=== PATIENT | female | born 2000 | race Caucasian/White ===

== ENCOUNTER 2018-08-21 10:48 | Emergency (ER) | payer OTHER ==
[2018-08-21] MEDS ORDERED: Ibuprofen TAB* 600 MG PO ONE (11:05)
--- NOTE | 2018-08-21 11:07 | ED ---
Upper Extremity Pain - HPI Summary HPI Summary: The patient is a 17 y/o F presenting to [facility] with a chief complaint of sudden onset pain in the left thumb and sustaining injury s/p slamming the finger in a car door yesterday. The aching pain has since increased since yesterday, and is currently rated 7/10 in severity. There is also bruising and decreased ROM in the thumb as movement aggravates the pain. Hx of mental health. FHx of diabetes and mental health. Former smoker, occasional EtOH, marijuana use. - History of Current Complaint Chief Complaint: EDExtremityUpper Stated Complaint: POSS BROKEN LEFT THUMB PER PT Time Seen by Provider: 08/21/18 10:59 Hx Obtained From: Patient Mechanism Of Injury: Other - slammed in car door Onset/Duration: Started Hours Ago - yesterday, Still Present Timing: Lasting Hours Severity Initially: Mild Severity Currently: Moderate Pain Location: Finger - left thumb Character: Aching Aggravating Factor(s): Movement Alleviating Factor(s): Rest Associated Signs & Symptoms: Positive: Bruising, Other - decreased ROM in the left thumb - Allergies/Home Medications Allergies/Adverse Reactions: Allergies Allergy/AdvReac Type Severity Reaction Status Date / Time shellfish derived Allergy Nausea Verified 08/21/18 10:52 PMH/Surg Hx/FS Hx/Imm Hx Respiratory History: Denies: Hx Asthma Sensory History: Denies: Hx Deafness Opthamlomology History: Denies: Hx Legally Blind EENT History: Denies: Hx Deafness Psychiatric History: Reports: Other Psychiatric Issues/Disorders - unspecified - Surgical History Surgical History: None Surgery Procedure, Year, and Place: none Infectious Disease History: No Infectious Disease History: Denies: Traveled Outside the [place] in Last 30 Days - Family History Known Family History: Positive: Diabetes, Other - mental health Negative: Cardiac Disease, Hypertension - Social History Alcohol Use: Occasionally Hx Substance Use: Yes Substance Use Type: Reports: Marijuana Substance Use Comment - Amount & Last Used: vape Hx Tobacco Use: Yes Smoking Status (MU): Former Smoker Review of Systems Positive: Decreased ROM - of the left thumb, Other - pain in the left thumb Positive: Bruising - of the left thumb All Other Systems Reviewed And Are Negative: Yes Physical Exam - Summary Physical Exam Summary: VITAL SIGNS: Reviewed. GENERAL: Patient is a well-developed and nourished female who is lying comfortable in the stretcher. Patient is not in any acute respiratory distress. HEAD AND FACE: No signs of trauma. No ecchymosis, hematomas or skull depressions. No sinus tenderness. EYES: PERRLA, EOMI x 2, No injected conjunctiva, no nystagmus. EARS: Hearing grossly intact. Ear canals and tympanic membranes are within normal limits. MOUTH: Oropharynx within normal limits. NECK: Supple, trachea is midline, no adenopathy, no JVD, no carotid bruit, no c- spine tenderness, neck with full ROM. CHEST: Symmetric, no tenderness at palpation LUNGS: Clear to auscultation bilaterally. No wheezing or crackles. CVS: Regular rate and rhythm, S1 and S2 present, no murmurs or gallops appreciated. ABDOMEN: Soft, non-tender. No signs of distention. No rebound no guarding, and no masses palpated. Bowel sounds are normal. EXTREMITIES: Unable to assess capillary refill due to subungual hematoma of the left thumb, decreased ROM secondary to pain. FROM in all major joints, no edema , no cyanosis or clubbing. NEURO: Alert and oriented x 3. No acute neurological deficits. Speech is normal and follows commands. SKIN: Dry and warm. Subungual hematoma of the left thumb. Triage Information Reviewed: Yes Vital Signs On Initial Exam: Initial Vitals Temp Pulse Resp BP Pulse Ox 97.5 F 79 14 137/72 97 08/21/18 10:49 08/21/18 10:49 08/21/18 10:49 08/21/18 10:49 08/21/18 10:49 Vital Signs Reviewed: Yes Diagnostics - Vital Signs Vital Signs Temp Pulse Resp BP Pulse Ox 08/21/18 10:49 97.5 F 79 14 137/72 97 - Laboratory Lab Statement: Any lab studies that have been ordered have been reviewed, and results considered in the medical decision making process. - Radiology L Thumb XR Radiology Interpretation Completed By: Radiologist Summary of Radiographic Findings: No evidence for fracture. ED physician has reviewed this radiology report. Re-Evaluation - Re-Evaluation First Eval Re-Evaluation Time: 11:38 Comment: I discussed the XR results with the patient, and we spoke about discharge home with splint placement. Course/Dx - Course Assessment/Plan: The patient is a 17 y/o F presenting to [facility] with a chief complaint of sudden onset pain in the left thumb and sustaining injury s/p slamming the finger in a car door yesterday. The aching pain has since increased since yesterday, and is currently rated 7/10 in severity. There is also bruising and decreased ROM in the thumb as movement aggravates the pain. Hx of mental health. FHx of diabetes and mental health. Former smoker, occasional EtOH, marijuana use. There is a mild subungual hematoma; therefore it did not offer any drainage at this point. X-ray of the left thumb shows no fracture or dislocation. Therefore, the patient was discharged home with follow- up with PCP. I will place the patient in a finger splint just to protect her from pain. Patient is hemodynamically stable alert and oriented 3. - Diagnoses Provider Diagnoses: Thumb injury, Subungual hematoma Discharge - Sign-Out/Discharge Documenting (check all that apply): Patient Departure - Patient will be discharged home. Patient Received Moderate/Deep Sedation with Procedure: No - Discharge Plan Condition: Good Disposition: HOME Patient Education Materials: Subungual Hematoma (ED), Finger Sprain (ED) Referrals: [facility] [place] [facility] [place] [facility] [Outside] - 3 Days Additional Instructions: FOLLOW UP WITH YOUR PRIMARY CARE PROVIDER IN 2-3 DAYS. RETURN TO THE ED FOR ANY WORSENING OR NEW SYMPTOMS. - Billing Disposition and Condition Condition: GOOD Disposition: Home - Attestation Statements Document Initiated by Deniz: Yes Documenting Scribe: Eva Barajas Provider For Whom Deniz is Documenting (Include Credential): Dr. Roman Weiss MD Scribe Attestation: Eva Fall scribed for Dr. Roman Weiss MD on 08/21/18 at 1206. Scribe Documentation Reviewed: Yes Provider Attestation: The documentation as recorded by the Eva conner accurately reflects the service I personally performed and the decisions made by me, Dr. Roman Weiss MD Status of [place] Document: Viewed
[2018-08-21 12:04] VITALS: BP 136/73
== END 2018-08-21 11:59 | disposition home or self-care (01) ==
LOC: ED 10:48
DX: S60.012A Contusion of left thumb without damage to nail, initial encounter (principal); W23.0XXA Caught, crushed, jammed, or pinched between moving objects, initial encounter; Y92.810 Car as the place of occurrence of the external cause; Z91.013 Allergy to seafood; Z87.891 Personal history of nicotine dependence
CPT/HCPCS: 99282; A9270-GY

== ENCOUNTER 2018-08-22 14:09 | Emergency (ER) | payer OTHER ==
--- NOTE | 2018-08-22 14:39 | ED ---
Upper Extremity Pain - HPI Summary HPI Summary: Patient is a 17-year-old female who presents emergency department for reevaluation of injury to left thumb that occurred 2 days ago. Patient states she accidentally closed her left thumb in a car door 2 days ago. She was seen here yesterday and had an x-ray which was negative for fracture dislocation. Patient states she's been taking Tylenol and Motrin and is still having pain. Patient concerned because she feels her pain is increasing and is concerned blood needs to be drained from under her nail bed. Patient states she does not want to lose her nail. Patient was given a finger splint which she has not been wearing stating it is uncomfortable. Denies new injuries. Symptoms are mild in severity. Touching and moving some makes symptoms worse. Nothing makes symptoms better. - History of Current Complaint Chief Complaint: EDExtremityUpper Stated Complaint: LEFT THUMB SPRAIN PER PT Time Seen by Provider: 08/22/18 14:37 Hx Obtained From: Patient - Allergies/Home Medications Allergies/Adverse Reactions: Allergies Allergy/AdvReac Type Severity Reaction Status Date / Time shellfish derived Allergy Nausea Verified 08/22/18 14:17 Home Medications: Home Medications Adderall 10 mg- 10 mg PO DAILY 08/22/18 [History Confirmed 08/22/18] Fluoxetine HCl [Prozac] 60 mg PO DAILY 08/22/18 [History Confirmed 08/22/18] LORazepam [Lorazepam] 0.5 mg PO DAILY PRN 08/22/18 [History Confirmed 08/22/18] Trazodone HCl 50 mg PO BEDTIME 08/22/18 [History Confirmed 08/22/18] PMH/Surg Hx/FS Hx/Imm Hx Previously Healthy: Yes Respiratory History: Denies: Hx Asthma Sensory History: Denies: Hx Legally Blind, Hx Deafness Opthamlomology History: Denies: Hx Legally Blind Psychiatric History: Reports: Other Psychiatric Issues/Disorders - unspecified - Surgical History Surgery Procedure, Year, and Place: none Infectious Disease History: No Infectious Disease History: Denies: Traveled Outside the [place] in Last 30 Days - Family History Known Family History: Positive: Diabetes, Other - mental health Negative: Cardiac Disease, Hypertension - Social History Occupation: Student Lives: Dormitory/Roommates Alcohol Use: Occasionally Hx Substance Use: Yes Substance Use Type: Reports: Marijuana Substance Use Comment - Amount & Last Used: vape Hx Tobacco Use: Yes Smoking Status (MU): Former Smoker Review of Systems Positive: Other - pain right thumb nail Positive: Bruising All Other Systems Reviewed And Are Negative: Yes Physical Exam Triage Information Reviewed: Yes Vital Signs On Initial Exam: Initial Vitals Temp Pulse Resp BP Pulse Ox 97.9 F 79 16 142/73 98 08/22/18 14:14 08/22/18 14:14 08/22/18 14:14 08/22/18 14:14 08/22/18 14:14 Vital Signs Reviewed: Yes Procedures - Splinting Left Thumb Hand-Made Type: orthoglass Splint: thumb spica Pre-Proc Neuro Vasc Exam: normal Post-Proc Neuro Vasc Exam: normal Diagnostics - Vital Signs Vital Signs Temp Pulse Resp BP Pulse Ox 08/22/18 14:14 97.9 F 79 16 142/73 98 - Laboratory Lab Statement: Any lab studies that have been ordered have been reviewed, and results considered in the medical decision making process. Course/Dx - Course Course Of Treatment: Patient presenting with crush injury to left thumb that happened over 48 hours ago. She had negative x-ray yesterday in the ER. Patient nail cannot be trephinated this long after injury as well as blood is most likely coagulated already. Patient was placed in a thumb spica splint for comfort. We'll have her follow up with [facility]. Advised ice and elevate. Can rotate Tylenol and Motrin for pain as directed. Return to ER if needed. Patient understands and agrees with plan. - Diagnoses Differential Diagnosis/HQI/PQRI: Positive: Contusion, Fracture (Closed), Hematoma, Strain, Sprain Provider Diagnoses: Crush injury to finger, Subungual hematoma of digit of hand Discharge - Sign-Out/Discharge Documenting (check all that apply): Patient Departure Patient Received Moderate/Deep Sedation with Procedure: No - Discharge Plan Condition: Good Disposition: HOME Patient Education Materials: Subungual Hematoma (ED) Referrals: [facility] [Outside] Additional Instructions: Follow up with [facility] Wear splint for comfort Ice and elevate Tylenol or Motrin for pain as directed Return to ER if symptoms change or worsen - Billing Disposition and Condition Condition: GOOD Disposition: Home
[2018-08-22] MEDS ORDERED: Acetaminophen TAB* 325 MG PO ONE (15:33)
[2018-08-22 16:35] VITALS: BP 128/87
== END 2018-08-22 16:34 | disposition home or self-care (01) ==
LOC: ED 14:09
DX: S67.02XA Crushing injury of left thumb, initial encounter (principal); S60.112A Contusion of left thumb with damage to nail, initial encounter; V48.4XXA Person boarding or alighting a car injured in noncollision transport accident, initial encounter; Z87.891 Personal history of nicotine dependence
CPT/HCPCS: 99282; A9270-GY